=== PATIENT | female | born 1980 | race Caucasian/White ===

== ENCOUNTER 2019-02-09 07:35 | Outpatient (CLI) | payer BC ==
--- NOTE | 2019-02-09 10:11 | RAD ---
BIPHASIC UPPER GI HISTORY: GERD FINDINGS: There are postop changes in the right and upper quadrants. Swallowing was grossly normal. There is unobstructed flow of contrast through the esophagus into the stomach duodenum and proximal jejunum. 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 A tiny diverticulum is noted in the distal esophagus. No obstructing mass or stricture i s identified. Mild spontaneous GE reflux was noted. IMPRESSION: 1. Tiny distal esophageal diverticulum. 2. Mild GE reflux.
== END 2019-02-09 07:36 | disposition home or self-care (01) ==
LOC: RAD 07:35
DX: K21.9 Gastro-esophageal reflux disease without esophagitis (principal); K22.5 Diverticulum of esophagus, acquired
CPT/HCPCS: 74247

== ENCOUNTER 2020-02-20 10:27 | Emergency (ER) | payer BC ==
--- NOTE | 2020-02-20 11:20 | ULT ---
VENOUS DOPPLER ULTRASOUND OF THE RIGHT LOWER EXTREMITY: Date: 02/20/2020 HISTORY: Right leg pain. TECHNIQUE: Melton scale ultrasound with color flow and spectral Doppler imaging of the deep venous system of the r ight lower extremity is performed. FINDINGS: There is good flow, compression, and augmentation noted in the right common femoral, femoral, deep fe moral, popliteal, posterior tibial, and greater saphenous veins. Incidental note is made of a complex cystic mass without flow in the soft tissues of the medial calf just below the knee to the mid calf measuring 6.3 x 1.7 x 2.9 cm of uncertain etiology. IMPRESSION: 1. No evidence of deep venous thrombosis in the right lower extremity. 2. Complex cystic mass in the soft tissues of the right medial calf of uncertain etiology. MRI would be helpful . POS: [place]
== END 2020-02-20 13:28 | disposition home or self-care (01) ==
LOC: ERS 10:27
DX: M79.81 Nontraumatic hematoma of soft tissue (principal); F41.9 Anxiety disorder, unspecified; F32.9 Major depressive disorder, single episode, unspecified; Z79.899 Other long term (current) drug therapy